=== PATIENT | female | born 1970 | race Caucasian/White ===

== ENCOUNTER 2020-06-07 10:29 | Day surgery (SDC) | payer OTHER ==
[2020-06-04 16:35] VITALS: BMI 22.5
[2020-06-07] MEDS ORDERED: SUCCINYLCHOLINE CHLORIDE 200 MG/10 ML SYRINGE ONE ×2 (13:33→16:26)
[2020-06-07] MEDS ORDERED: MIDAZOLAM HCL 2 MG/2 ML SINGLE DOSE VIAL ONE ×2 (13:33)
[2020-06-07] MEDS ORDERED: LIDOCAINE HCL/PF 2% SDV 5ML VIAL ONE (14:07)
[2020-06-07] MEDS ORDERED: LIDOCAINE HCL 2% JELLY (5 ML/TUBE) ONE (14:07)
[2020-06-07] MEDS ORDERED: KETOROLAC TROMETHAMINE 30 MG/1 ML VIAL ONE ×2 (14:07→16:48)
[2020-06-07] MEDS ORDERED: ceFAZolin SODIUM 1 GM VIAL ONE (14:07)
[2020-06-07] MEDS ORDERED: ONDANSETRON 4 MG/2 ML VIAL ONE ×3 (14:07→18:23)
[2020-06-07] MEDS ORDERED: DEXAMETHASONE SOD PHOSPHATE 4 MG/1 ML VIAL ONE (14:07)
[2020-06-07] MEDS ORDERED: SODIUM CHLORIDE 0.9% P/F 10 ML VIAL IJ ONE (14:07)
[2020-06-07] MEDS ORDERED: NEOSTIGMINE METHYLSULFATE 0.5 MG/1 ML - 10 ML MDV ONE (16:11)
[2020-06-07] MEDS ORDERED: GLYCOPYRROLATE 0.2 MG/1 ML VIAL ONE (16:11)
[2020-06-07] MEDS ORDERED: GUM MASTIC/STORAX/MSAL/ALCOHOL 1 DRP DROPSBTL MC ONE (16:16)
[2020-06-07] MEDS ORDERED: PROPOFOL 20 ML ONE (16:26)
[2020-06-07] MEDS ORDERED: oxyCODONE HCL 5 MG TABLET PO PRN ×2 (16:49)
[2020-06-07] MEDS ORDERED: ONDANSETRON 4 MG/2 ML VIAL IVPUSH PRN (16:49)
[2020-06-07] MEDS ORDERED: PROMETHAZINE HCL 25 MG/1 ML VIAL IVPUSH PRN (16:49)
[2020-06-07] MEDS ORDERED: KETOROLAC TROMETHAMINE 30 MG/1 ML VIAL IVPUSH ONE (16:53)
[2020-06-07] MEDS ORDERED: ACETAMINOPHEN 1000 MG/100 ML VIAL (NON FORMULARY) IVPB ONE (16:54)
[2020-06-07] MEDS ORDERED: ACETAMINOPHEN INJECTION 100 ML IVPB ONE (16:54)
[2020-06-07] MEDS ORDERED: oxyCODONE HCL 5 MG TABLET ONE (17:10)
[2020-06-07 18:06] VITALS: TEMP 97.6
[2020-06-07 19:38] VITALS: BP 108/61; PULSE 78
== END 2020-06-07 19:30 | disposition home or self-care (01) ==
LOC: FASU 10:29
PROVIDERS: ATTEND Orthopaedic Surgery Sports Medicine
PROC: 0LQM0ZZ Repair Left Upper Leg Tendon, Open Approach (ICD-10-PCS; principal; 2020-06-07 14:20)
DX: S76.312A Strain of muscle, fascia and tendon of the posterior muscle group at thigh level, left thigh, initial encounter (principal); X58.XXXA Exposure to other specified factors, initial encounter; Y92.9 Unspecified place or not applicable; Y93.9 Activity, unspecified
CPT/HCPCS: 27385; C1713; 84703; 94760; J0131

== ENCOUNTER 2020-06-15 15:31 | Emergency (ER) | payer OTHER ==
[2020-06-15 16:00] VITALS: BP 108/60; PULSE 85; TEMP 99.1; BMI 22.8
[2020-06-15] MEDS ORDERED: ACETAMINOPHEN 1000 MG/100 ML VIAL (NON FORMULARY) IVPB ONE (16:01)
[2020-06-15] MEDS ORDERED: ACETAMINOPHEN INJECTION 100 ML IVPB ONE (16:26)
[2020-06-15 16:59] LABS: BASO % 0.7 % (0-2.0); EOS % 0.4 % (0-4.5); HEMATOCRIT 36.3 % (32.4-45.2); LYMPH % 12.5 % (8-40); MCH 29.6 pg (25.7-33.7); MCHC 33.2 g/dl (32.0-36.0); MEAN CELL VOLUME 89.3 fl (80-96); MEAN PLT VOLUME 10.6 fl (7.5-11.1); MONO % 10.6 % (3.8-10.2); NEUT % 75.8 % (42.8-82.8); PLATELET COUNT 176 K/MM3 (134-434); RBC 4.07 M/mm3 (3.60-5.2); RDW 12.2 % (11.6-15.6); WHITE BLOOD COUNT 8.2 K/mm3 (4.0-10.8)
[2020-06-15] MEDS ORDERED: SODIUM CHLORIDE 0.9% 500 ML INFUS.BAG IV ONE (17:33)
[2020-06-15] MEDS ORDERED: morphine CARPU-JECT 4 MG/1 ML DISP.SYRIN IVPUSH ONE (17:33)
[2020-06-15] MEDS ORDERED: morphine SULFATE 4 MG/ML VIAL ONE (17:35)
[2020-06-15 17:37] LABS: ALBUMIN 3.9 g/dl (3.4-5.0); ALK PHOS 37 U/L (45-117); ANION GAP 13 MMOL/L (8-16); BILIRUBIN,TOTAL 1.2 mg/dl (0.2-1); CALCIUM 8.7 mg/dl (8.5-10); CHLORIDE 99 mmol/L (98-107); CO2 23 mmol/L (21-32); CREATININE 0.7 mg/dl (0.55-1.3); GLUCOSE,RANDOM 96 mg/dl (74-106); SGOT/AST 25 U/L (15-37); SGPT/ALT 19 U/L (13-61); SODIUM 135 mmol/L (136-145); TOT PROT 6.3 g/dl (6.4-8.2)
[2020-06-15 17:45] LABS: ACTIVATED PTT 25.8 SECONDS (25.2-36.5); INR 1.2 (0.82-1.09); PROTHROMBIN TIME (PATIENT) 13.4 SEC (10.2-13.0)
== END 2020-06-15 21:36 | disposition home or self-care (01) ==
LOC: FER 15:31
PROC: 3E0333Z Introduction of Anti-inflammatory into Peripheral Vein, Percutaneous Approach (ICD-10-PCS; principal; 2020-06-15)
PROC: 3E033NZ Introduction of Analgesics, Hypnotics, Sedatives into Peripheral Vein, Percutaneous Approach (ICD-10-PCS; 2020-06-15)
DX: R68.83 Chills (without fever) (principal); M79.605 Pain in left leg
CPT/HCPCS: 36415; 71045-TC-FY; 73701-TC-RT; 80053; 84484; 85025; 85610; 85730; 87040; 93005; 93971-TC; 99285-25; C9803; J0131; Q9967; U0003; U0005

== ENCOUNTER 2020-06-22 14:01 | Inpatient (IN) | payer OTHER ==
[2020-06-22 16:25] LABS: BASO % 0.4 % (0-2.0); EOS % 0.1 % (0-4.5); LYMPH % 8.7 % (8-40); MCH 30.2 pg (25.7-33.7); MCHC 34.2 g/dl (32.0-36.0); MEAN CELL VOLUME 88.5 fl (80-96); MEAN PLT VOLUME 9.7 fl (7.5-11.1); MONO % 10.2 % (3.8-10.2); NEUT % 80.6 % (42.8-82.8); PLATELET COUNT 394 K/MM3 (134-434); RDW 12.5 % (11.6-15.6); WHITE BLOOD COUNT 14.7 K/mm3 (4.0-10.0)
[2020-06-22 16:38] LABS: INR 1.18 (0.83-1.09); PROTHROMBIN TIME (PATIENT) 14.5 SEC (9.7-13.0)
[2020-06-22 16:41] LABS: ACTIVATED PTT 27.2 SECONDS (25.2-36.5)
[2020-06-22 17:01] LABS: CALCIUM 9.5 mg/dL (8.5-10.1)
[2020-06-22 17:02] LABS: ALBUMIN 3.6 g/dl (3.4-5.0)
[2020-06-22 17:05] LABS: CREATININE 0.6 mg/dL (0.55-1.3)
[2020-06-22 17:06] LABS: BILIRUBIN,TOTAL 0.6 mg/dL (0.2-1); TOT PROT 8.4 g/dl (6.4-8.2)
[2020-06-22] MEDS ORDERED: ACETAMINOPHEN 325 MG TABLET (FP) PO ONE (18:46)
[2020-06-22] MEDS ORDERED: ACETAMINOPHEN 1000 MG/100 ML VIAL (NON FORMULARY) IVPB ONE (18:48)
[2020-06-22] MEDS ORDERED: ACETAMINOPHEN INJECTION 100 ML IVPB ONE (18:50)
[2020-06-22] MEDS ORDERED: oxyCODONE HCL 5 MG TABLET PO PRN ×2 (22:52)
[2020-06-22] MEDS ORDERED: ONDANSETRON 4 MG/2 ML VIAL IVPUSH PRN (22:52)
[2020-06-22] MEDS ORDERED: SUCCINYLCHOLINE CHLORIDE 200 MG/10 ML SYRINGE ONE (22:55)
[2020-06-22] MEDS ORDERED: PROPOFOL 20 ML ONE ×2 (22:55)
[2020-06-22] MEDS ORDERED: MIDAZOLAM HCL 2 MG/2 ML SINGLE DOSE VIAL ONE (22:55)
[2020-06-22] MEDS ORDERED: ROCURONIUM BROMIDE 50 MG/5 ML SYRINGE ONE (22:55)
[2020-06-22] MEDS ORDERED: LIDOCAINE HCL/PF 2% SDV 5ML VIAL ONE (22:56)
[2020-06-22] MEDS ORDERED: LACTATED RINGERS SOLUTION 1,000 ML IV SCH (23:00)
[2020-06-22] MEDS ORDERED: PIPERACILLIN/TAZOBACTAM 3.375 GM VIAL IVPB ONE ×2 (23:03→23:38)
[2020-06-22] MEDS ORDERED: EPHEDRINE SULFATE/0.9% NACL/PF 50 MG/10 ML SYRINGE NR ONE (23:09)
[2020-06-22] MEDS ORDERED: NEOSTIGMINE METHYLSULFATE 0.5 MG/ML - 10 ML MDV ONE (23:26)
[2020-06-22] MEDS ORDERED: GLYCOPYRROLATE 0.2 MG/1 ML VIAL ONE ×2 (23:27→23:55)
[2020-06-22] MEDS ORDERED: KETOROLAC TROMETHAMINE 30 MG/1 ML VIAL ONE (23:27)
[2020-06-22] MEDS ORDERED: VANCOMYCIN 1,000 MG VIAL (RESTRICTED TO ID ONLY) IVPB ONE (23:38)
[2020-06-22] MEDS ORDERED: BACITRACIN 50,000 UNITS VIAL TP ONE ×2 (23:39)
[2020-06-22] MEDS ORDERED: DEXAMETHASONE SOD PHOSPHATE 4 MG/1 ML VIAL ONE (23:44)
[2020-06-22] MEDS ORDERED: VANCOMYCIN 1,000 MG VIAL (RESTRICTED TO ID ONLY) ONE ×2 (23:47)
[2020-06-22] MEDS ORDERED: TRANEXAMIC ACID 1000 MG/10 ML VIAL ONE (23:50)
[2020-06-23] MEDS ORDERED: PROPOFOL 20 ML ONE (00:02)
[2020-06-23] MEDS ORDERED: VANCOMYCIN 1,000 MG VIAL (RESTRICTED TO ID ONLY) IVPB ONE (00:07)
[2020-06-23] MEDS ORDERED: GLYCOPYRROLATE 0.2 MG/1 ML VIAL ONE (00:27)
[2020-06-23] MEDS ORDERED: ACETAMINOPHEN 1000 MG/100 ML VIAL (NON FORMULARY) IVPB ONE ×2 (00:48)
[2020-06-23] MEDS ORDERED: ACETAMINOPHEN INJECTION 100 ML IVPB ONE ×2 (00:49→01:13)
[2020-06-23] MEDS ORDERED: MEPERIDINE HCL 25 MG/ML VIAL IVPUSH ONE (00:49)
[2020-06-23] MEDS ORDERED: MEPERIDINE HCL 25 MG/ML VIAL ONE (00:49)
[2020-06-23] MEDS ORDERED: oxyCODONE HCL 5 MG TABLET PO PRN (01:08)
[2020-06-23] MEDS ORDERED: ONDANSETRON 4 MG/2 ML VIAL IVPUSH PRN (01:08)
[2020-06-23] MEDS ORDERED: PIPERACILLIN/TAZOB 3.375 GM 3.375 GM/50 ML BAG IVPB SCH ×2 (02:00→05:00)
[2020-06-23] MEDS: oxyCODONE HCL 5 MG TABLET PO PRN ×3 (03:21→22:38)
[2020-06-23] MEDS: LACTATED RINGERS SOLUTION 1,000 ML/1,000 ML INFUS.BAG IV SCH ×2 (03:22→22:39)
[2020-06-23 04:26] VITALS: BMI 21.2
[2020-06-23] MEDS ORDERED: PIPERACILLIN/TAZOB 3.375 GM 3.375 GM in DEXTROSE 5%-WATER - 50 ML IVPB SCH (05:34)
[2020-06-23] MEDS ORDERED: DEXTROSE 5%-WATER - 50 ML IVPB ONE ×3 (05:36→17:11)
[2020-06-23] MEDS ORDERED: PIPERACILLIN/TAZOBACTAM 3.375 GM VIAL IVPB ONE ×3 (05:36→17:11)
[2020-06-23] MEDS: PIPERACILLIN/TAZOB 3.375 GM 3.375 GM in DEXTROSE 5%-WATER - 50 ML IVPB SCH ×3 (05:54→17:21)
[2020-06-23 07:45] LABS: BASO % 0.2 % (0-2.0); HEMATOCRIT 32.1 % (32.4-45.2); HEMOGLOBIN 10.9 GM/dL (10.7-15.3); LYMPH % 5.8 % (8-40); MCH 30.1 pg (25.7-33.7); MEAN CELL VOLUME 88.5 fl (80-96); MONO % 1.9 % (3.8-10.2); NEUT % 92.1 % (42.8-82.8); PLATELET COUNT 397 K/MM3 (134-434); RBC 3.63 M/mm3 (3.60-5.2); RDW 12.9 % (11.6-15.6); WHITE BLOOD COUNT 13.1 K/mm3 (4.0-10.0)
[2020-06-23 08:23] LABS: BLOOD UREA NITROGEN 12.8 mg/dL (7-18); CALCIUM 8.6 mg/dL (8.5-10.1); MAGNESIUM 2.2 mg/dL (1.8-2.4)
[2020-06-23 08:26] LABS: CREATININE 0.6 mg/dL (0.55-1.3)
[2020-06-23 08:28] LABS: BILIRUBIN,TOTAL 0.4 mg/dL (0.2-1)
[2020-06-23 08:38] LABS: ALBUMIN 2.8 g/dl (3.4-5.0); TOT PROT 6.3 g/dl (6.4-8.2)
[2020-06-23] MEDS: MULTIVITAMINS (DAILY MVI) TABLET (FP) PO SCH (09:56)
[2020-06-23] MEDS ORDERED: ENOXAPARIN NA (PORCINE) 40 MG/0.4 ML DISP.SYRIN SQ SCH (10:00)
[2020-06-23] MEDS ORDERED: VANCOMYCIN 1 GM in D5W (PRE-DOCKED) 1,000 MG/250 ML IVPB SCH (10:00)
[2020-06-23 10:05] LABS: ANISOCYTOSIS 0; HELMET CELLS 0; HOWELL-JOLLY BODIES 0; MACROCYTOSIS 0; OVALOCYTE 0; PLATELET ESTIMATE NORMAL; ROULEAU 0; SICKELED CELLS 0; TARGET CELLS 0; TEAR DROP CELLS 0; TOXIC GRANULATION 0
[2020-06-23] MEDS ORDERED: DOCUSATE SODIUM 100 MG CAPSULE (FP) PO ONE (21:51)
[2020-06-23] MEDS: VANCOMYCIN 1 GM in D5W (PRE-DOCKED) 1,000 MG/250 ML IVPB SCH (22:11)
[2020-06-24] MEDS ORDERED: DEXTROSE 5%-WATER - 50 ML IVPB ONE ×3 (01:13→17:21)
[2020-06-24] MEDS ORDERED: PIPERACILLIN/TAZOBACTAM 3.375 GM VIAL IVPB ONE ×3 (01:13→17:21)
[2020-06-24] MEDS: PIPERACILLIN/TAZOB 3.375 GM 3.375 GM in DEXTROSE 5%-WATER - 50 ML IVPB SCH ×3 (01:23→17:24)
[2020-06-24 08:05] LABS: HEMATOCRIT 27.7 % (32.4-45.2); HEMOGLOBIN 9.2 GM/dL (10.7-15.3); MCH 29.4 pg (25.7-33.7); MCHC 33.1 g/dl (32.0-36.0); MEAN CELL VOLUME 88.7 fl (80-96); MEAN PLT VOLUME 9.1 fl (7.5-11.1); PLATELET COUNT 361 K/MM3 (134-434); RBC 3.13 M/mm3 (3.60-5.2); RDW 12.7 % (11.6-15.6); WHITE BLOOD COUNT 8.2 K/mm3 (4.0-10.0)
[2020-06-24 08:38] LABS: BLOOD UREA NITROGEN 9.3 mg/dL (7-18); CALCIUM 8.2 mg/dL (8.5-10.1); MAGNESIUM 2.1 mg/dL (1.8-2.4)
[2020-06-24 08:41] LABS: CREATININE 0.6 mg/dL (0.55-1.3)
[2020-06-24 08:42] LABS: PHOSPHOROUS 4.3 mg/dL (2.5-4.9)
[2020-06-24] MEDS: oxyCODONE HCL 5 MG TABLET PO PRN (09:06)
[2020-06-24] MEDS: MULTIVITAMINS (DAILY MVI) TABLET (FP) PO SCH (09:09)
[2020-06-24] MEDS: VANCOMYCIN 1 GM in D5W (PRE-DOCKED) 1,000 MG/250 ML IVPB SCH (09:56)
[2020-06-24] MEDS ORDERED: oxyCODONE HCL 5 MG TABLET PO PRN ×4 (10:11→13:52)
[2020-06-24] MEDS ORDERED: ONDANSETRON 4 MG/2 ML VIAL IVPUSH PRN ×2 (10:11→13:14)
[2020-06-24] MEDS ORDERED: LACTATED RINGERS SOLUTION 1,000 ML IV SCH ×2 (10:15→13:15)
[2020-06-24] MEDS ORDERED: MIDAZOLAM HCL 2 MG/2 ML SINGLE DOSE VIAL ONE (10:58)
[2020-06-24] MEDS ORDERED: PROPOFOL 20 ML ONE ×2 (11:03→13:12)
[2020-06-24] MEDS ORDERED: ROCURONIUM BROMIDE 50 MG/5 ML SYRINGE ONE (11:03)
[2020-06-24] MEDS ORDERED: LIDOCAINE HCL/PF 2% SDV 5ML VIAL ONE (11:03)
[2020-06-24] MEDS ORDERED: LACTATED RINGERS SOLUTION 1,000 ML/1,000 ML INFUS.BAG IV SCH (11:15)
[2020-06-24] MEDS ORDERED: LACTOBACILLUS ACIDOPHILUS 1 TABLET PO SCH (11:15)
[2020-06-24] MEDS ORDERED: VANCOMYCIN 1,000 MG VIAL (RESTRICTED TO ID ONLY) ONE (12:10)
[2020-06-24] MEDS ORDERED: HYDROmorphone HCl 2 MG/ML VIAL ONE (12:30)
[2020-06-24] MEDS ORDERED: DEXAMETHASONE SOD PHOSPHATE 4 MG/1 ML VIAL ONE (12:43)
[2020-06-24] MEDS ORDERED: BACITRACIN 50,000 UNITS VIAL NR ONE (12:50)
[2020-06-24] MEDS ORDERED: ACETAMINOPHEN 500 MG TABLET (FP) PO PRN (13:14)
[2020-06-24] MEDS ORDERED: NEOSTIGMINE METHYLSULFATE 0.5 MG/ML - 10 ML MDV ONE (13:17)
[2020-06-24] MEDS ORDERED: BACITRACIN 15 GM TUBE TOPICAL OINTMENT ONE (13:18)
[2020-06-24] MEDS ORDERED: DOCUSATE SODIUM 100 MG CAPSULE (FP) PO SCH (14:00)
[2020-06-24] MEDS: DOCUSATE SODIUM 100 MG CAPSULE (FP) PO SCH ×2 (16:03→21:25)
[2020-06-24] MEDS ORDERED: DAPTOMYCIN 550 MG in SODIUM CHLORIDE 50 ML IVPB SCH (17:00)
[2020-06-24] MEDS ORDERED: PT OWN MED DRAWER 7, Y5N ONE (17:45)
[2020-06-24] MEDS ORDERED: VANCOMYCIN/WATER BAGS 1,250 MG/250 ML BAG IVPB SCH ×2 (22:00)
[2020-06-25] MEDS ORDERED: DEXTROSE 5%-WATER - 50 ML IVPB ONE (01:07)
[2020-06-25] MEDS ORDERED: PIPERACILLIN/TAZOBACTAM 3.375 GM VIAL IVPB ONE (01:07)
[2020-06-25] MEDS: PIPERACILLIN/TAZOB 3.375 GM 3.375 GM in DEXTROSE 5%-WATER - 50 ML IVPB SCH (01:15)
[2020-06-25] MEDS: DOCUSATE SODIUM 100 MG CAPSULE (FP) PO SCH ×3 (05:28→21:37)
[2020-06-25 07:45] LABS: BASO % 0.4 % (0-2.0); EOS % 0.3 % (0-4.5); HEMATOCRIT 27.3 % (32.4-45.2); HEMOGLOBIN 9.3 GM/dL (10.7-15.3); LYMPH % 21.5 % (8-40); MCH 30.2 pg (25.7-33.7); MCHC 34.1 g/dl (32.0-36.0); MEAN CELL VOLUME 88.7 fl (80-96); MEAN PLT VOLUME 9.3 fl (7.5-11.1); MONO % 9.8 % (3.8-10.2); PLATELET COUNT 347 K/MM3 (134-434); RBC 3.07 M/mm3 (3.60-5.2); RDW 12.9 % (11.6-15.6); WHITE BLOOD COUNT 9.1 K/mm3 (4.0-10.0)
[2020-06-25 08:17] LABS: CALCIUM 8.3 mg/dL (8.5-10.1)
[2020-06-25 08:18] LABS: ALBUMIN 2.5 g/dl (3.4-5.0); BILIRUBIN,TOTAL 0.2 mg/dL (0.2-1); BLOOD UREA NITROGEN 8.9 mg/dL (7-18)
[2020-06-25 08:20] LABS: TOT PROT 5.8 g/dl (6.4-8.2)
[2020-06-25 08:21] LABS: CREATININE 0.6 mg/dL (0.55-1.3)
[2020-06-25] MEDS: LACTATED RINGERS SOLUTION 1,000 ML/1,000 ML INFUS.BAG IV SCH (09:32)
[2020-06-25] MEDS: ENOXAPARIN NA (PORCINE) 40 MG/0.4 ML DISP.SYRIN SQ SCH (09:34)
[2020-06-25] MEDS: LACTOBACILLUS ACIDOPHILUS 1 TABLET PO SCH (09:34)
[2020-06-25] MEDS: FERROUS SO4 325 MG TABLET (FP) PO SCH (09:34)
[2020-06-25] MEDS: MULTIVITAMINS (DAILY MVI) TABLET (FP) PO SCH (09:34)
[2020-06-25] MEDS ORDERED: PT OWN MED DRAWER 7, Y5N ONE ×2 (09:43→10:34)
[2020-06-25] MEDS ORDERED: BENZOCAINE/MENTH/CETYLPYRD CL 1 EACH LOZENGE MM PRN (10:00)
[2020-06-25 10:30] LABS: ERYTHROCYTE SEDIMENTATION RATE 44 mm/hr (0-30)
[2020-06-25] MEDS: ACETAMINOPHEN 325 MG TABLET (FP) PO PRN ×2 (13:31→23:18)
[2020-06-25] MEDS: SODIUM CHLORIDE IVPB SCH (18:01)
[2020-06-25] MEDS: DAPTOMYCIN IVPB SCH (18:01)
[2020-06-26] MEDS: DOCUSATE SODIUM 100 MG CAPSULE (FP) PO SCH ×3 (05:35→21:42)
[2020-06-26] MEDS: ACETAMINOPHEN 325 MG TABLET (FP) PO PRN (06:47)
[2020-06-26 08:09] LABS: BASO % 0.6 % (0-2.0); EOS % 1.2 % (0-4.5); HEMATOCRIT 28.1 % (32.4-45.2); HEMOGLOBIN 9.6 GM/dL (10.7-15.3); LYMPH % 27.2 % (8-40); MCH 30.3 pg (25.7-33.7); MCHC 34.2 g/dl (32.0-36.0); MEAN CELL VOLUME 88.5 fl (80-96); MEAN PLT VOLUME 9.4 fl (7.5-11.1); MONO % 9.1 % (3.8-10.2); NEUT % 61.9 % (42.8-82.8); PLATELET COUNT 341 K/MM3 (134-434); RBC 3.18 M/mm3 (3.60-5.2); RDW 12.8 % (11.6-15.6); WHITE BLOOD COUNT 7.8 K/mm3 (4.0-10.0)
[2020-06-26 08:57] LABS: BLOOD UREA NITROGEN 6.2 mg/dL (7-18)
[2020-06-26 08:58] LABS: ALBUMIN 2.6 g/dl (3.4-5.0); CALCIUM 8.3 mg/dL (8.5-10.1); MAGNESIUM 2.2 mg/dL (1.8-2.4)
[2020-06-26 09:01] LABS: BILIRUBIN,TOTAL 0.3 mg/dL (0.2-1); CREATININE 0.5 mg/dL (0.55-1.3); PHOSPHOROUS 4.1 mg/dL (2.5-4.9)
[2020-06-26] MEDS ORDERED: PT OWN MED DRAWER 7, Y5N ONE (09:53)
[2020-06-26] MEDS: ENOXAPARIN NA (PORCINE) 40 MG/0.4 ML DISP.SYRIN SQ SCH (09:55)
[2020-06-26] MEDS: MULTIVITAMINS (DAILY MVI) TABLET (FP) PO SCH (09:56)
[2020-06-26] MEDS: LACTOBACILLUS ACIDOPHILUS 1 TABLET PO SCH (09:56)
[2020-06-26] MEDS: FERROUS SO4 325 MG TABLET (FP) PO SCH (09:56)
[2020-06-26] MEDS: DAPTOMYCIN IVPB SCH (17:26)
[2020-06-26] MEDS: SODIUM CHLORIDE IVPB SCH (17:26)
[2020-06-27] MEDS: DOCUSATE SODIUM 100 MG CAPSULE (FP) PO SCH ×2 (05:45→16:32)
[2020-06-27 08:25] LABS: BASO % 0.7 % (0-2.0); EOS % 1.9 % (0-4.5); HEMOGLOBIN 10.1 GM/dL (10.7-15.3); LYMPH % 23.6 % (8-40); MCH 30.2 pg (25.7-33.7); MCHC 34.7 g/dl (32.0-36.0); MEAN CELL VOLUME 87.1 fl (80-96); MEAN PLT VOLUME 9.1 fl (7.5-11.1); MONO % 9.2 % (3.8-10.2); NEUT % 64.6 % (42.8-82.8); PLATELET COUNT 384 K/MM3 (134-434); RBC 3.33 M/mm3 (3.60-5.2); RDW 12.8 % (11.6-15.6); WHITE BLOOD COUNT 7.4 K/mm3 (4.0-10.0)
[2020-06-27 08:59] LABS: ALBUMIN 2.9 g/dl (3.4-5.0); BLOOD UREA NITROGEN 6.3 mg/dL (7-18); CALCIUM 8.6 mg/dL (8.5-10.1); MAGNESIUM 2.4 mg/dL (1.8-2.4)
[2020-06-27 09:02] LABS: CREATININE 0.6 mg/dL (0.55-1.3)
[2020-06-27 09:04] LABS: BILIRUBIN,TOTAL 0.3 mg/dL (0.2-1); PHOSPHOROUS 4.1 mg/dL (2.5-4.9); TOT PROT 6.4 g/dl (6.4-8.2)
[2020-06-27] MEDS: FERROUS SO4 325 MG TABLET (FP) PO SCH (12:11)
[2020-06-27] MEDS: LACTOBACILLUS ACIDOPHILUS 1 TABLET PO SCH (12:11)
[2020-06-27] MEDS: ENOXAPARIN NA (PORCINE) 40 MG/0.4 ML DISP.SYRIN SQ SCH (12:11)
[2020-06-27] MEDS: MULTIVITAMINS (DAILY MVI) TABLET (FP) PO SCH (12:12)
[2020-06-27 12:18] VITALS: TEMP 97.3
[2020-06-27 14:40] VITALS: BP 91/53; PULSE 79
[2020-06-27] MEDS: SODIUM CHLORIDE IVPB SCH (16:24)
[2020-06-27] MEDS: DAPTOMYCIN IVPB SCH (16:24)
== END 2020-06-27 19:29 | disposition home health service (06) | DRG 856 ==
LOC: JER 14:01 → JERBED 16:17 → J8W 06-23 02:16
PROVIDERS: ADMIT Hospitalist; ATTEND Internal Medicine
PROC: 0JBM0ZZ Excision of Left Upper Leg Subcutaneous Tissue and Fascia, Open Approach (ICD-10-PCS; principal; 2020-06-23)
PROC: 0J9M0ZZ Drainage of Left Upper Leg Subcutaneous Tissue and Fascia, Open Approach (ICD-10-PCS; 2020-06-23)
PROC: 0YQJ0ZZ Repair Left Lower Leg, Open Approach (ICD-10-PCS; 2020-06-26)
PROC: 02HV33Z Insertion of Infusion Device into Superior Vena Cava, Percutaneous Approach (ICD-10-PCS; 2020-06-27)
DX: T81.49XA Infection following a procedure, other surgical site, initial encounter (principal); A41.9 Sepsis, unspecified organism; Y83.9 Surgical procedure, unspecified as the cause of abnormal reaction of the patient, or of later complication, without mention of misadventure at the time of the procedure; D64.9 Anemia, unspecified; R07.9 Chest pain, unspecified; E04.1 Nontoxic single thyroid nodule; I27.20 Pulmonary hypertension, unspecified; S81.802A Unspecified open wound, left lower leg, initial encounter; X58.XXXA Exposure to other specified factors, initial encounter; Y93.9 Activity, unspecified; Y92.89 Other specified places as the place of occurrence of the external cause; Y99.9 Unspecified external cause status
CPT/HCPCS: 36415; 36569; 71045-TC-FY; 71275-TC; 77001-TC-FY; 80048; 80053; 82550; 83735; 84100; 84443; 85025; 85027; 85610; 85651; 85730; 86140; 86850; 86900; 86901; 87040; 87070; 87186; 87205; 93005; 93010; 93306-TC; 94760; 97116-GP; 97161-GP; 99285-25; C1751; C9803; G0480; J0131; J0878; Q9967; U0003; U0005

== ENCOUNTER 2020-08-31 14:45 | Inpatient (IN) | payer OTHER ==
[2020-08-30 09:41] VITALS: BMI 21.2
[2020-08-31] MEDS ORDERED: VANCOMYCIN 1,000 MG VIAL (RESTRICTED TO ID ONLY) ONE (15:16)
[2020-08-31] MEDS ORDERED: MIDAZOLAM HCL 2 MG/2 ML SINGLE DOSE VIAL ONE (15:56)
[2020-08-31] MEDS ORDERED: SUCCINYLCHOLINE CHLORIDE 200 MG/10 ML SYRINGE ONE (15:56)
[2020-08-31] MEDS ORDERED: PROPOFOL 20 ML ONE (15:56)
[2020-08-31] MEDS ORDERED: DEXAMETHASONE SOD PHOSPHATE 4 MG/1 ML VIAL ONE (16:28)
[2020-08-31] MEDS ORDERED: ONDANSETRON 4 MG/2 ML VIAL ONE ×3 (16:28→17:33)
[2020-08-31] MEDS ORDERED: ONDANSETRON 4 MG/2 ML VIAL IVPUSH PRN (17:49)
[2020-08-31] MEDS ORDERED: oxyCODONE HCL 5 MG TABLET PO PRN ×2 (17:49→18:03)
[2020-08-31] MEDS ORDERED: MORPHINE SULFATE 2 MG/ML VIAL IVPUSH PRN (18:03)
[2020-08-31] MEDS ORDERED: ONDANSETRON 4 MG/2 ML VIAL IVPB PRN (18:03)
[2020-08-31] MEDS: LACTATED RINGERS SOLUTION 1,000 ML IV SCH ×2 (18:21→22:15)
[2020-08-31] MEDS ORDERED: morphine SULFATE 4 MG/ML VIAL ONE (19:10)
[2020-08-31] MEDS: morphine SULFATE 4 MG/ML VIAL IVPUSH PRN ×2 (19:15→23:49)
[2020-08-31] MEDS: oxyCODONE HCL 5 MG TABLET PO PRN (21:12)
[2020-08-31 21:59] LABS: HEMATOCRIT 36.7 % (32.4-45.2); HEMOGLOBIN 12.1 GM/dl (10.7-15.3); MCH 28.5 pg (25.7-33.7); MCHC 32.9 g/dl (32.0-36.0); MEAN CELL VOLUME 86.7 fl (80-96); MEAN PLT VOLUME 10.4 fl (7.5-11.1); PLATELET COUNT 180 10^3/uL (134-434); RBC 4.24 M/mm3 (3.60-5.2); RDW 12.8 % (11.6-15.6); WHITE BLOOD COUNT 7.9 K/mm3 (4.0-10.8)
[2020-09-01] MEDS ORDERED: DEXTROSE 5%-WATER - 50 ML IVPB ONE ×3 (02:12→18:15)
[2020-09-01] MEDS ORDERED: ceFAZolin SODIUM 1 GM VIAL ONE ×3 (02:12→18:15)
[2020-09-01] MEDS: oxyCODONE HCL 5 MG TABLET PO PRN ×4 (02:17→19:43)
[2020-09-01] MEDS: CEFAZOLIN 1 GM in DEXTROSE 5%-WATER - 50 ML IVPB SCH ×3 (02:18→18:26)
[2020-09-01] MEDS: morphine SULFATE 4 MG/ML VIAL IVPUSH PRN (13:54)
[2020-09-01] MEDS: LACTATED RINGERS SOLUTION 1,000 ML IV SCH (18:25)
[2020-09-02] MEDS: oxyCODONE HCL 5 MG TABLET PO PRN ×4 (00:26→14:47)
[2020-09-02] MEDS ORDERED: ceFAZolin SODIUM 1 GM VIAL ONE ×3 (01:24→17:41)
[2020-09-02] MEDS ORDERED: DEXTROSE 5%-WATER - 50 ML IVPB ONE ×3 (01:24→17:41)
[2020-09-02] MEDS: CEFAZOLIN 1 GM in DEXTROSE 5%-WATER - 50 ML IVPB SCH ×3 (01:35→18:15)
[2020-09-02 08:48] LABS: HEMATOCRIT 27.3 % (32.4-45.2); HEMOGLOBIN 9.2 GM/dl (10.7-15.3); MCHC 33.7 g/dl (32.0-36.0); MEAN PLT VOLUME 10.6 fl (7.5-11.1); PLATELET COUNT 126 10^3/uL (134-434); RBC 3.17 M/mm3 (3.60-5.2); RDW 12.7 % (11.6-15.6); WHITE BLOOD COUNT 5.6 K/mm3 (4.0-10.8)
[2020-09-02] MEDS ORDERED: HYDROmorphone HCl 2 MG/ML VIAL IVPUSH ONE (11:14)
[2020-09-02] MEDS: FERROUS SO4 325 MG TABLET (FP) PO SCH ×2 (14:46→21:22)
[2020-09-02] MEDS: DOCUSATE SODIUM 100 MG CAPSULE (FP) PO SCH ×2 (14:47→21:22)
[2020-09-02] MEDS: MULTIVITAMINS (DAILY MVI) TABLET (FP) PO SCH (14:47)
[2020-09-02] MEDS: LACTATED RINGERS SOLUTION 1,000 ML IV SCH (21:22)
[2020-09-03] MEDS: oxyCODONE HCL 5 MG TABLET PO PRN ×2 (00:27→08:08)
[2020-09-03] MEDS ORDERED: ceFAZolin SODIUM 1 GM VIAL ONE ×2 (01:06→09:10)
[2020-09-03] MEDS ORDERED: DEXTROSE 5%-WATER - 50 ML IVPB ONE ×2 (01:07→09:10)
[2020-09-03] MEDS: CEFAZOLIN 1 GM in DEXTROSE 5%-WATER - 50 ML IVPB SCH ×2 (01:27→09:28)
[2020-09-03] MEDS: DOCUSATE SODIUM 100 MG CAPSULE (FP) PO SCH ×3 (06:44→21:29)
[2020-09-03] MEDS ORDERED: HYDROmorphone HCL/PF 1 MG/ML VIAL IVPB ONE (08:15)
[2020-09-03] MEDS: FERROUS SO4 325 MG TABLET (FP) PO SCH ×2 (09:28→21:29)
[2020-09-03] MEDS: MULTIVITAMINS (DAILY MVI) TABLET (FP) PO SCH (09:28)
[2020-09-03] MEDS ORDERED: DAPTOMYCIN 600 MG in SODIUM CHLORIDE 50 ML IVPB SCH (11:00)
[2020-09-03] MEDS: DAPTOMYCIN 600 MG in SODIUM CHLORIDE 50 ML IVPB SCH (13:44)
[2020-09-03] MEDS: LACTATED RINGERS SOLUTION 1,000 ML IV SCH (21:29)
[2020-09-04] MEDS: DOCUSATE SODIUM 100 MG CAPSULE (FP) PO SCH ×3 (06:14→21:26)
[2020-09-04] MEDS: MULTIVITAMINS (DAILY MVI) TABLET (FP) PO SCH (09:43)
[2020-09-04] MEDS: FERROUS SO4 325 MG TABLET (FP) PO SCH ×2 (09:43→21:26)
[2020-09-04 14:07] VITALS: BP 100/57; PULSE 68; TEMP 97.7
[2020-09-04] MEDS: DAPTOMYCIN 600 MG in SODIUM CHLORIDE 50 ML IVPB SCH (17:08)
[2020-09-04] MEDS: LACTATED RINGERS SOLUTION 1,000 ML IV SCH (17:15)
== END 2020-09-04 20:30 | disposition home or self-care (01) | DRG 857 ==
LOC: FASUSAT 14:45 → FM/S 18:02 → FASUSAT 18:44 → FM/S 09-03 00:15
PROVIDERS: ADMIT Plastic Surgery; ATTEND Plastic Surgery
PROC: 0QB30ZX Excision of Left Pelvic Bone, Open Approach, Diagnostic (ICD-10-PCS; 2020-08-31)
PROC: 2W2PX4Z Dressing of Left Upper Leg using Bandage (ICD-10-PCS; 2020-08-31)
PROC: 02HV33Z Insertion of Infusion Device into Superior Vena Cava, Percutaneous Approach (ICD-10-PCS; 2020-08-31)
PROC: B548ZZA Ultrasonography of Superior Vena Cava, Guidance (ICD-10-PCS; 2020-08-31)
PROC: 0S9B0ZX Drainage of Left Hip Joint, Open Approach, Diagnostic (ICD-10-PCS; principal; 2020-08-31 16:24)
DX: T81.49XA Infection following a procedure, other surgical site, initial encounter (principal); M86.8X8 Other osteomyelitis, other site; B95.62 Methicillin resistant Staphylococcus aureus infection as the cause of diseases classified elsewhere
CPT/HCPCS: 36415; 36569; 77001-TC-FY; 84703; 85027; 87040; 87070; 87102; 87116; 87186; 87205; 87206; 87210; 88305-TC; 88311-TC; 94760; C1751; J0878

== ENCOUNTER 2020-10-05 11:32 | Inpatient (IN) | payer OTHER ==
[2020-10-05] MEDS ORDERED: SODIUM CHLORIDE 0.9% 1000 ML INFUS.BAG IV ONE (12:34)
[2020-10-05] MEDS ORDERED: PIPERACILLIN/TAZOB 3.375 GM 3.375 GM in DEXTROSE 5%-WATER - 50 ML IVPB ONE (13:18)
[2020-10-05] MEDS ORDERED: PIPERACILLIN/TAZOB 3.375 GM 3.375 GM/50 ML BAG IVPB ONE ×2 (13:21→18:00)
[2020-10-05 13:25] LABS: BASO % 0.6 % (0-2.0); EOS % 1.3 % (0-4.5); HEMATOCRIT 30.3 % (32.4-45.2); HEMOGLOBIN 10.1 GM/dL (10.7-15.3); LYMPH % 17.7 % (8-40); MCH 27.7 pg (25.7-33.7); MCHC 33.3 g/dl (32.0-36.0); MEAN CELL VOLUME 83.1 fl (80-96); MEAN PLT VOLUME 9.4 fl (7.5-11.1); MONO % 9.5 % (3.8-10.2); NEUT % 70.9 % (42.8-82.8); PLATELET COUNT 325 10^3/uL (134-434); RBC 3.64 M/mm3 (3.60-5.2); RDW 13.5 % (11.6-15.6); WHITE BLOOD COUNT 7.3 K/mm3 (4.0-10.0)
[2020-10-05 13:32] LABS: INR 1.11 (0.83-1.09); PROTHROMBIN TIME (PATIENT) 13.6 SEC (9.7-13.0)
[2020-10-05 13:46] LABS: CALCIUM 8.9 mg/dL (8.5-10.1)
[2020-10-05 13:47] LABS: ALBUMIN 3.1 g/dl (3.4-5.0); BLOOD UREA NITROGEN 6.4 mg/dL (7-18)
[2020-10-05 13:50] LABS: CREATININE 0.7 mg/dL (0.55-1.3)
[2020-10-05 13:52] LABS: BILIRUBIN,TOTAL 0.2 mg/dL (0.2-1)
[2020-10-05] MEDS ORDERED: DAPTOMYCIN 550 MG in SODIUM CHLORIDE 50 ML IVPB SCH (17:30)
[2020-10-05] MEDS: SODIUM CHLORIDE 1,000 ML IV SCH (17:58)
[2020-10-05] MEDS ORDERED: DAPTOMYCIN 550 MG in SODIUM CHLORIDE 50 ML IVPB ONE (18:00)
[2020-10-05] MEDS: DAPTOMYCIN 600 MG in SODIUM CHLORIDE 50 ML IVPB SCH (18:17)
[2020-10-05] MEDS: PIPERACILLIN/TAZOB 3.375 GM 3.375 GM in DEXTROSE 5%-WATER - 50 ML IVPB SCH (19:09)
[2020-10-05] MEDS ORDERED: MORPHINE SULFATE 2 MG/ML VIAL IVPUSH PRN (19:44)
[2020-10-06] MEDS ORDERED: DEXTROSE 5%-WATER - 50 ML IVPB ONE ×2 (02:32→09:57)
[2020-10-06] MEDS ORDERED: PIPERACILLIN/TAZOBACTAM 3.375 GM VIAL IVPB ONE ×2 (02:32→09:57)
[2020-10-06] MEDS: PIPERACILLIN/TAZOB 3.375 GM 3.375 GM in DEXTROSE 5%-WATER - 50 ML IVPB SCH ×2 (02:54→10:03)
[2020-10-06] MEDS: ACETAMINOPHEN 325 MG TABLET (FP) PO PRN (04:01)
[2020-10-06 06:24] VITALS: BMI 25.4
[2020-10-06] MEDS: SODIUM CHLORIDE 1,000 ML IV SCH (06:45)
[2020-10-06 09:09] LABS: HEMATOCRIT 27.7 % (32.4-45.2); HEMOGLOBIN 9.3 GM/dL (10.7-15.3); MCH 27.8 pg (25.7-33.7); MCHC 33.7 g/dl (32.0-36.0); MEAN CELL VOLUME 82.6 fl (80-96); MEAN PLT VOLUME 9.4 fl (7.5-11.1); PLATELET COUNT 292 10^3/uL (134-434); RBC 3.35 M/mm3 (3.60-5.2); RDW 13.2 % (11.6-15.6); WHITE BLOOD COUNT 5.3 K/mm3 (4.0-10.0)
[2020-10-06 09:30] LABS: ALBUMIN 2.6 g/dl (3.4-5.0); BLOOD UREA NITROGEN 7.6 mg/dL (7-18); MAGNESIUM 2.4 mg/dL (1.8-2.4)
[2020-10-06 09:33] LABS: CREATININE 0.7 mg/dL (0.55-1.3); PHOSPHOROUS 4.6 mg/dL (2.5-4.9)
[2020-10-06 09:34] LABS: BILIRUBIN,TOTAL 0.2 mg/dL (0.2-1); TOT PROT 7.3 g/dl (6.4-8.2)
[2020-10-06] MEDS: LACTOBACILLUS ACIDOPHILUS 1 TABLET PO SCH (10:03)
[2020-10-06] MEDS ORDERED: PIPERACILLIN/TAZOBACTAM 4.5 GM VIAL IVPB ONE (16:28)
[2020-10-06] MEDS ORDERED: DEXTROSE 5%-WATER 100 ML IVPB ONE (16:28)
[2020-10-06] MEDS ORDERED: PT OWN MED DRAWER 7, Y5N ONE (16:28)
[2020-10-06] MEDS: PIPERACILLIN/TAZOB 4.5 GM 4.5 GM in DEXTROSE 5%-WATER 100 ML IVPB SCH (17:03)
[2020-10-06] MEDS: DAPTOMYCIN 600 MG in SODIUM CHLORIDE 50 ML IVPB SCH (18:41)
[2020-10-07] MEDS ORDERED: PIPERACILLIN/TAZOBACTAM 4.5 GM VIAL IVPB ONE ×2 (01:36→10:29)
[2020-10-07] MEDS ORDERED: DEXTROSE 5%-WATER 100 ML IVPB ONE ×3 (01:36→16:47)
[2020-10-07] MEDS: PIPERACILLIN/TAZOB 4.5 GM 4.5 GM in DEXTROSE 5%-WATER 100 ML IVPB SCH ×2 (01:49→10:43)
[2020-10-07] MEDS: ACETAMINOPHEN 325 MG TABLET (FP) PO PRN (03:53)
[2020-10-07 09:25] LABS: HEMATOCRIT 30.6 % (32.4-45.2); HEMOGLOBIN 10.5 GM/dL (10.7-15.3); MCHC 34.2 g/dl (32.0-36.0); MEAN PLT VOLUME 9.3 fl (7.5-11.1); PLATELET COUNT 355 10^3/uL (134-434); RBC 3.73 M/mm3 (3.60-5.2); RDW 13.3 % (11.6-15.6); WHITE BLOOD COUNT 5.6 K/mm3 (4.0-10.0)
[2020-10-07 10:09] LABS: BLOOD UREA NITROGEN 10.1 mg/dL (7-18)
[2020-10-07 10:13] LABS: CREATININE 0.7 mg/dL (0.55-1.3)
[2020-10-07] MEDS ORDERED: PT OWN MED DRAWER 7, Y5N ONE (10:29)
[2020-10-07] MEDS: LACTOBACILLUS ACIDOPHILUS 1 TABLET PO SCH (10:43)
[2020-10-07 13:34] VITALS: BP 84/52; PULSE 59; TEMP 98.6
[2020-10-07] MEDS: DAPTOMYCIN 600 MG in SODIUM CHLORIDE 50 ML IVPB SCH (17:31)
[2020-10-07] MEDS ORDERED: CEFTRIAXONE 2 GM in DEXTROSE 5%-WATER 2 GM/100 ML BAG IVPB SCH (18:00)
== END 2020-10-07 19:16 | disposition home or self-care (01) | DRG 863 ==
LOC: JER 11:32 → JERBED 14:09 → J8W 21:45
PROVIDERS: ADMIT Internal Medicine
PROC: 0J9M0ZX Drainage of Left Upper Leg Subcutaneous Tissue and Fascia, Open Approach, Diagnostic (ICD-10-PCS; principal; 2020-10-05)
DX: T81.49XA Infection following a procedure, other surgical site, initial encounter (principal); B95.62 Methicillin resistant Staphylococcus aureus infection as the cause of diseases classified elsewhere; E04.1 Nontoxic single thyroid nodule; Y83.9 Surgical procedure, unspecified as the cause of abnormal reaction of the patient, or of later complication, without mention of misadventure at the time of the procedure
CPT/HCPCS: 36415; 49407; 71045-TC-FY; 80048; 80053; 82550; 83615; 83735; 84100; 85025; 85027; 85610; 85651; 85730; 86140; 86850; 86900; 86901; 87040; 87070; 87075; 87102; 87116; 87186; 87205; 87206; 87210; 93005; 93010; 99285-25; C9803; G0378; J0878; U0003; U0005